=== PATIENT | male | born 1975 | race Caucasian/White ===

== ENCOUNTER 2017-12-26 20:20 | Emergency (ER) | payer BC ==
[~2017-12-26] VITALS: Ht 188 cm; Wt 110.2 kg
[2017-12-26 22:33] VITALS: BP 133/92
== END 2017-12-26 22:33 | disposition home or self-care (01) ==
LOC: ED 20:20
DX: F12.10 Cannabis abuse, uncomplicated (principal); R42 Dizziness and giddiness; R25.1 Tremor, unspecified
CPT/HCPCS: 82962